=== PATIENT | male | born 1990 | race Caucasian/White ===

== ENCOUNTER 2022-04-13 12:11 | Emergency (ER) | payer SELFPAY ==
--- NOTE | 2022-04-13 12:22 | ER ---
Nurse's Notes [facility] Name: Diaz Marshall Age: 31 yrs Sex: Male : 1990 Arrival Date: 04/13/2022 Time: 12:13 Bed Waiting Private MD: Diagnosis: Epistaxis Presentation: 04/13 12:17 Chief complaint: Patient states: nose bleed X 1 week. Coronavirus screen: At this time, iw the client does not indicate any symptoms associated with coronavirus-19. Ebola Screen: Patient negative for fever greater than or equal to 101.5 degrees Fahrenheit, and additional compatible Ebola Virus Disease symptoms Patient denies exposure to infectious person. Patient denies travel to an Ebola-affected area in the 21 days before illness onset. No symptoms or risks identified at this time. Initial Sepsis Screen: Does the patient meet any 2 criteria? No. Patient's initial sepsis screen is negative. Does the patient have a suspected source of infection? No. Patient's initial sepsis screen is negative. Risk Assessment: Do you want to hurt yourself or someone else? Patient reports no desire to harm self or others. Onset of symptoms was April 07, 2022. 12:17 Method Of Arrival: Ambulatory iw 12:17 Acuity: LEONEL 4 iw Historical: - Allergies: 12:18 No Known Allergies; iw - Home Meds: 12:18 None [Active]; iw - PMHx: 12:18 None; iw - Immunization history:: Adult Immunizations. Screenin:21 Abuse screen: Denies threats or abuse. Denies injuries from another. Nutritional iw screening: No deficits noted. Tuberculosis screening: No symptoms or risk factors identified. Fall Risk None identified. Assessment: 12:20 General: Appears in no apparent distress. Behavior is calm, cooperative. Pain: Denies iw pain. Neuro: Level of Consciousness is awake, alert, obeys commands, Oriented to person, place, time, situation, Moves all extremities. Cardiovascular: Patient's skin is warm and dry. Respiratory: Respiratory effort is even, unlabored, Respiratory pattern is regular. EENT: Reports nasal discharge that is bloody. Derm: Skin is intact, is healthy with good turgor. Musculoskeletal: Range of motion: intact in all extremities. Vital Signs: 12:17 BP 125 / 82; Pulse 74; Resp 16; Temp 97.5; Pulse Ox 100% on R/A; iw ED Course: 12:13 Patient arrived in ED. mr 12:13 Link Erwin DO is Attending Physician. ms3 12:18 Triage completed. iw 12:18 Arm band placed on. iw 12:20 Mariia Pratt MD is Referral Physician. ms3 12:21 No provider procedures requiring assistance completed. Patient did not have IV access iw during this emergency room visit. Administered Medications: No medications were administered Medication: 12:21 VIS not applicable for this client. iw Outcome: 12:21 Discharge ordered by . ms3 12:29 Patient left the ED. iw Signatures: Crystal Sykes mr Ada Moreland, RN RN iw Link Erwin DO DO ms3
--- NOTE | 2022-04-13 12:22 | EDPHYS ---
Physician Documentation [facility] Name: Diaz Marshall Age: 31 yrs Sex: Male : 1990 Arrival Date: 04/13/2022 Time: 12:13 Bed Waiting Private MD: ED Physician Link Erwin HPI: 04/13 12:25 This 31 yrs old Male presents to ER via Ambulatory with complaints of Nose Bleed. ms3 12:25 The patient presents with a nose bleed, that is apparently anterior, from the left ms3 nare. Onset: The symptoms/episode began/occurred 1 week(s) ago. Modifying factors: The symptoms are alleviated by nothing. the symptoms are aggravated by nothing. Associated signs and symptoms: The patient has no apparent associated signs or symptoms. Severity of symptoms: At their worst the symptoms were severe in the emergency department the symptoms have resolved Pain is currently a 0 / 10. Historical: - Allergies: 12:18 No Known Allergies; iw - Home Meds: 12:18 None [Active]; iw - PMHx: 12:18 None; iw - Immunization history:: Adult Immunizations. ROS: 12:25 Constitutional: Negative for fever, and chills. ENT: Endorses epistaxis Neck: Negative ms3 for injury, pain, and swelling, Cardiovascular: Negative for chest pain, and palpitations. Respiratory: Negative for shortness of breath, cough, wheezing, and pleuritic chest pain, Abdomen/GI: Negative for abdominal pain, nausea, vomiting, diarrhea, and constipation, MS/Extremity: Negative for injury and deformity, Skin: Negative for injury, rash, and discoloration, Psych: Negative for depression, anxiety, suicide ideation, homicidal ideation, and hallucinations. 12:25 All other systems are negative. Exam: 12:25 Constitutional: This is a well developed, well nourished patient who is awake, alert, ms3 and in no acute distress. Neck: Trachea midline, no cervical lymphadenopathy. Supple, full range of motion without nuchal rigidity, or vertebral point tenderness. No Meningismus. Chest/axilla: Normal chest wall appearance and motion. Nontender with no deformity. Cardiovascular: Regular rate and rhythm with a normal S1 and S2. No gallops, murmurs, or rubs. Normal PMI, no JVD. No pulse deficits. Respiratory: Lungs have equal breath sounds bilaterally, clear to auscultation and percussion. No rales, rhonchi or wheezes noted. No increased work of breathing, no retractions or nasal flaring. Abdomen/GI: Soft, non-tender, with normal bowel sounds. No distension or tympany. No guarding or rebound. No evidence of tenderness throughout. Skin: Warm, dry with normal turgor. Normal color with no rashes, no lesions, and no evidence of cellulitis. MS/ Extremity: Pulses equal, no cyanosis. Neurovascular intact. Full, normal range of motion. Neuro: Awake and alert, GCS 15, oriented to person, place, time, and situation. Cranial nerves II-XII grossly intact. Motor strength 5/5 in all extremities. Sensory grossly intact. Cerebellar exam normal. Normal gait. Psych: Awake, alert, with orientation to person, place and time. Behavior, mood, and affect are within normal limits. 12:25 Constitutional: This is a well developed, well nourished patient who is awake, alert, and in no acute distress. ENT: Dried blood in left anterior nare Neck: Trachea midline, no cervical lymphadenopathy. Supple, full range of motion without nuchal rigidity, or vertebral point tenderness. No Meningismus. Chest/axilla: Normal chest wall appearance and motion. Nontender with no deformity. Cardiovascular: Regular rate and rhythm with a normal S1 and S2. No gallops, murmurs, or rubs. Normal PMI, no JVD. No pulse deficits. Respiratory: Lungs have equal breath sounds bilaterally, clear to auscultation and percussion. No rales, rhonchi or wheezes noted. No increased work of breathing, no retractions or nasal flaring. Abdomen/GI: Soft, non-tender, with normal bowel sounds. No distension or tympany. No guarding or rebound. No evidence of tenderness throughout. Skin: Warm, dry with normal turgor. Normal color with no rashes, no lesions, and no evidence of cellulitis. MS/ Extremity: Pulses equal, no cyanosis. Neurovascular intact. Full, normal range of motion. Neuro: Awake and alert, GCS 15, oriented to person, place, time, and situation. Cranial nerves II-XII grossly intact. Motor strength 5/5 in all extremities. Sensory grossly intact. Cerebellar exam normal. Normal gait. Psych: Awake, alert, with orientation to person, place and time. Behavior, mood, and affect are within normal limits. Vital Signs: 12:17 BP 125 / 82; Pulse 74; Resp 16; Temp 97.5; Pulse Ox 100% on R/A; iw MDM: 12:20 Patient medically screened. ms3 12:25 Differential diagnosis: trauma, spontaneous epistaxis. Data reviewed: vital signs, ms3 nurses notes, and as a result, I will discharge patient. Counseling: I had a detailed discussion with the patient and/or guardian regarding: the historical points, exam findings, and any diagnostic results supporting the discharge/admit diagnosis, the need for outpatient follow up, to return to the emergency department if symptoms worsen or persist or if there are any questions or concerns that arise at home. ED course: Discussed physical exam findings with patient. Patient to follow-up with Dr Pratt in 2 to 3 days. Patient understands and agrees with plan. All questions were answered. Return precautions discussed include worsening symptoms, or any other concerns. On reevaluation patient is alert and oriented x4, in no apparent distress, nontoxic-appearing, speaking full sentences, without epistaxis in ED, ambulatory in emergency department.. Administered Medications: No medications were administered Disposition Summary: 04/13/22 12:21 Discharge Ordered Location: Home ms3 Condition: Stable ms3 Diagnosis - Epistaxis ms3 Followup: ms3 - With: Mariia Pratt MD - When: 2 - 3 days - Reason: Re-evaluation by your physician Discharge Instructions: - Discharge Summary Sheet ms3 - Nosebleed, Adult ms3 Forms: - Medication Reconciliation Form ms3 - Thank You Letter ms3 - Antibiotic Education ms3 - Work release form iw - Prescription Opioid Use ms3 Signatures: Ada Moreland RN RN iw Link Erwin DO DO ms3 Corrections: (The following items were deleted from the chart) 12:28 12:25 Constitutional: Negative for fever, and chills. Neck: Negative for injury, pain, ms3 and swelling, Cardiovascular: Negative for chest pain, and palpitations. Respiratory: Negative for shortness of breath, cough, wheezing, and pleuritic chest pain, Abdomen/GI: Negative for abdominal pain, nausea, vomiting, diarrhea, and constipation, MS/Extremity: Negative for injury and deformity, Skin: Negative for injury, rash, and discoloration, Psych: Negative for depression, anxiety, suicide ideation, homicidal ideation, and hallucinations, ms3 12:28 12:25 Neuro: Positive for seizure activity, ms3 ms3
[2022-04-13 12:36] VITALS: BP 125/82; TEMP 97.5; O2SAT 100
== END 2022-04-13 12:29 | disposition home or self-care (01) ==
LOC: ER 12:11
DX: R04.0 Epistaxis (principal)